=== PATIENT | female | born 1975 | race Two or more races ===

== ENCOUNTER 2025-07-17 10:54 | Emergency (ER) | payer BC, SELFPAY ==
[2025-07-17 11:15] VITALS: BP 135/85; PULSE 67; RESP 18; TEMP 36.8; O2SAT 97
--- NOTE | 2025-07-17 11:29 | XR_ITS ---
Examination: Pelvic ultrasound, transabdominal, complete Technique: Transabdominal ultrasound of the pelvis performed using grayscale imaging Date and time of exam: July 17, 2025, 1153 hrs. Indications: Lower pelvic pain and postmenopausal bleeding beginning 2 days ago. Findings: Uterus 9.8 cm endometrial stripe 1.2 cm No uterine mass. Right ovary obscured by bowel gas. Left ovary 2.1 cm arterial flow. Impression: Abnormally thickened endometrial stripe 1.2 cm, differential would include endometrial hyperplasia, early malignant neoplasm of the endometrium. Recommend elective MRI pelvis follow-up, pre and post intravenous contrast
--- NOTE | 2025-07-17 11:29 | PD.EDABDPN ---
ED Abdominal Pain RME/HPI General Chief Complaint: Abdominal Pain Stated complaint: ABD & LOWER BACK PAIN X 2 DAYS Time seen by provider: 07/17/25 11:00 Arrival date/time: 07/17/25 10:54 Limitations: no limitations RME / HPI RME / HPI narrative: 49-year-old female with history of vaginal bleeding and lower abdominal pain x 2 days. States saw PCP and was told likely from abnormal thyroid. On 25 mcg of levothyroxine. But she states this has been the dose for some time does not think it is related to that. No history of kidney stones. No burning with urination. States finds it very odd that she is starting her period again. No history of fibroids or any gynecological issues. Related Data Previous Rx's ?Medication ?Instructions ?Recorded naproxen 500 mg tablet,delayed 500 mg PO BID PRN pain #20 tabs 04/25/18 release (EC-Naprosyn) IBU 800 mg tablet (ibuprofen) 800 mg PO Q6H PRN pain #30 tabs 07/17/25 medroxyprogesterone 10 mg tablet 10 mg PO QDAY #10 tabs 07/17/25 (Provera) Allergies Allergy/AdvReac Type Severity Reaction Status Date / Time No Known Allergies Allergy Verified 07/17/25 11:01 Review of Systems Review of Systems Systems Reviewed: All systems reviewed, normal except as documented Gastrointestinal Gastrointestinal: Reports as per HPI Genitourinary Genitourinary: Reports as per HPI ED Exam General Limitations: Present no limitations General appearance: Present alert and in no apparent distress Eye Eye exam: Present normal appearance, PERRL and EOMI Respiratory Respiratory exam: Present normal lung sounds bilaterally Cardiovascular Cardiovascular exam: Present regular rate, normal rhythm and normal heart sounds Abdominal Exam Abdominal exam: Present soft, tenderness (suprapubic ttp ) and normal bowel sounds External exam: Present other (declined pelvic exam ) Extremities Exam Extremities exam: Present normal inspection and full ROM Back Exam Back exam: Present normal inspection and full ROM Psychiatric Psychiatric exam: Present normal affect and normal mood Skin Skin exam: Present warm, dry, intact and normal color Course Quality Measures none Orders Category Date Time Status US pelvic complete Stat Exams 07/17/25 11:29 Completed CBC Stat Lab 07/17/25 11:43 Completed CMP [Comprehensive Metabolic Panel] Stat Lab 07/17/25 11:43 Completed HCG,Qualitative Serum Stat Lab 07/17/25 11:43 Completed TSH [Thyroid Stimulating Hormone] Stat Lab 07/17/25 11:43 Completed Type and Screen Stat Lab 07/17/25 11:43 Completed UA [Urinalysis] Stat Lab 07/17/25 11:45 Completed Vital Signs Vital signs: Vital Signs Temperature 98.3 F 07/17/25 11:15 Pulse Rate 67 07/17/25 11:15 Respiratory Rate 18 07/17/25 11:15 Blood Pressure 135/85 H 07/17/25 11:15 Pulse Oximetry (%) 97 07/17/25 11:15 Oxygen Delivery Method Room Air 07/17/25 11:15 Abdominal Pain MDM MDM Narrative MDM Narrative:: Long conversation with patient about requiring endometrial biopsy after today's findings. Copy of ultrasound given. Both she and verbalized understanding of plan. Follow-up with PCP return to ER symptoms worsen or bleeding more than 1 pad per hour. Will need a gynecological referral for endometrial biopsy Patient data External records reviewed:: [facility] previous records Clinical information provided by:: patient and family Social determinants that could affect healthcare access:: other (specify) (No PCP appointment and we can) Patient has the following chronic illnesses:: Hypothyroidism How is presenting disease/condition affected by chronic disease/condition?: uneffected by (On levothyroxine 25 mcg) Evaluation data The following diagnostics were reviewed and interpreted by me:: lab results and radiology exam(s) Lab and/or radiology exams considered but not ordered:: CT or MRI of pelvis considered however will not change the course of treatment today Interpretation Summary: CBC within normal limits CMP within normal limits UA expected for vaginal bleeding, ultrasound did show thickened endometrial lining no uterine masses. Medications / Prescriptions Medications or Prescriptions considered but not ordered:: All medications considered were ordered other than narcotics however side effects likely worsen benefits Medication administrations:: No medications here Consultations Consultation(s) initiated? (list below): No Diagnosis Differential diagnosis abdominal pain: abdominal pain, calculus of kidney, constipation, endometriosis and other (Fibroid, [place], uterine cancer, cervical cancer.) Most likely diagnosis given after review of the tests above:: Dysfunctional uterine bleeding in postmenopausal woman Admission Indicated Admission indicated?: not indicated Admission Request Was there a request for admission?: No Disposition Plan Disposition Plan: Discharge Discharge Attestation Discharge Attestation: The patient and all family members were given an opportunity to ask questions and understood the discharge instructions. Discharge instructions specifically effects, indications for sooner follow up or return to the emergency department, and the expected course of current diagnosis. Patient condition: Stable Discharge Plan Plan Patient Disposition: HOME (Self Care) Discharge Disposition comment: f/u 2-3days with pcp Prescriptions/Referrals Prescriptions/Med Rec: New medroxyprogesterone [Provera] 10 mg tablet 10 mg PO QDAY Qty: 10 0RF ibuprofen [IBU] 800 mg tablet 800 mg PO Q6H PRN (Reason: pain) Qty: 30 0RF No Action naproxen [EC-Naprosyn] 500 mg tablet,delayed release (DR/EC) 500 mg PO BID PRN (Reason: pain) Qty: 20 0RF Referrals: Harris Prasad MD [Primary Care Provider] - In 1 week Problem List Clinical Impression: Post-menopausal bleeding, Pelvic pain Patient/Caregiver Discharge Instructions Education Materials: Endometrial Biopsy Print Language: Upper Sorbian Stand Alone Forms: Ivana Award Info., Work/School Release, Patient Portal Info Letter PA/[employer]BER DEF[employer] ANALYST Supervising Physician PA/[employer]BER DEF[employer] ANALYST Supervising Physician: Dr. Nielsen
[2025-07-17 12:08] LABS: Collection Type, Urine Clean Catch
[2025-07-17 12:13] LABS: Basophils # (Auto) 0.1 Thou/mm3 (0.0-0.2); Basophils % (Auto) 1 % (0-2.5); Eosinophils # (Auto) 0.1 Thou/mm3 (0.0-0.5); Eosinophils % (Auto) 1 % (0-10); Hematocrit 41.5 % (36.0-46.0); Hemoglobin 14.2 g/dL (12.0-16.0); Immature Granulocytes Auto 0.01 Thou/mm3 (0.00-0.00); Lymphocytes # (Auto) 3.0 Thou/mm3 (1.0-4.8); Lymphocytes % (Auto) 46 % (10-50); Mean Corpuscular HGB Conc 34.2 g/dl (31.0-37.0); Mean Corpuscular Hemoglobin 30.9 pg (25.0-35.0); Mean Corpuscular Volume 90 fL (80-100); Monocytes # (Auto) 0.4 Thou/mm3 (0.0-0.8); Monocytes % (Auto) 6 % (0-12); Neutrophils # (Auto) 3.1 Thou/mm3 (1.8-7.7); Neutrophils % (Auto) 47 % (37-80); Nucleated Red Blood Cell # 0.00 Thou/mm3 (0.00-0.00); Nucleated Red Blood Cell % 0 /100 WBC (0); Platelet Count 316 Thou/mm3 (140-440); RDW Standard Deviation 45.7 fL (36.4-46.3); Red Blood Count 4.59 Miln/mm3 (4.00-5.20); White Blood Count 6.7 Thou/mm3 (3.6-11.0)
[2025-07-17 12:20] LABS: Bilirubin,Urine Negative (Negative); Blood,Urine 3+ (Negative); Color,Urine Lt-Yellow (Lt Yel-Yel); Glucose, Urine Negative (Negative); Ketones,Urine Negative (Negative); Leukocyte Esterase,Urine Negative (Negative); Nitrite,Urine Negative (Negative); PH,Urine 6.5 (5.0-7.0); Protein,Urine Negative (Neg - Trace); RBC,Urine 141 /hpf (0-3); Specific Gravity,Urine 1.022 (1.001-1.035); Squamous Epithelial Cell,Urine 6 /hpf (0-5); Urobilinogen,Urine Negative mg/dL (0.0-1.0); WBC,Urine 1 /hpf (0-5)
[2025-07-17 12:34] LABS: HCG,Qualitative Serum Negative
[2025-07-17 12:39] LABS: Alanine Aminotransferase 19 U/L (10-49); Albumin, Serum 4.0 gm/dL (3.5-5.0); Albumin/Globulin Ratio 1.4 (1.2-2.2); Alkaline Phosphatase 112 U/L (46-116); Anion Gap 9 (7-16); Aspartate Amino Transferase 18 U/L (0-34); BUN/Creatinine Ratio 9 Ratio (12-20); Bilirubin,Total 0.5 mg/dL (0.3-1.2); Blood Urea Nitrogen 6 mg/dL (9-23); Calcium 9.6 mg/dL (8.3-10.6); Calcium (Corrected) 9.6 mg/dL (8.5-10.1); Carbon Dioxide 27.1 mMol/L (20.0-31.0); Chloride 108 mMol/L (98-107); Creatinine (Component) 0.7 mg/dL (0.6-1.3); Estimated Creatinine Clearance 97.0 mL/min (>60); Globulin 2.8 gm/dL (2.3-3.5); Glucose 116 mg/dL (74-106); Osmolality,Calculated 285 (275-295); Potassium 4.0 mMol/L (3.4-5.1); Sodium 144 mMol/L (136-145); Thyroid Stimulating Hormone 0.96 uIU/mL (0.55-4.78); Total Protein 6.8 gm/dL (5.7-8.2); eGFR > 60 See Note
[2025-07-17 12:59] LABS: Clarity,Urine Hazy (Clear/Hazy)
== END 2025-07-17 15:35 | disposition home or self-care (01) ==
PROVIDERS: Emergency Provider Physician Assistant; PCP Family Medicine
DX: R93.89 Abnormal findings on diagnostic imaging of other specified body structures (principal)
CPT/HCPCS: 36415; 76856; 80053; 81001; 84443; 84703; 85025; 86850; 86900; 86901; 99283